=== PATIENT | female | born 1975 | race Caucasian/White ===

== ENCOUNTER → 2016-10-08 | Outpatient (CLI) | payer OTHER ==
[~2016-10-08] MED LIST: CALC625T13 PO; LEVOIUD; MELO15TA4 PO; METH500T37 PO; OXYC-57 PO; PANT1TAB48 PO; POLY335019 PO; SUMA25TA12 PO
== END | disposition home or self-care (01) ==
LOC: C.LAB1850 11:07
PROVIDERS: ATTEND Nurse Practitioner Family
DX: L65.9 Nonscarring hair loss, unspecified (principal)

== ENCOUNTER → 2016-12-03 | Outpatient (CLI) | payer OTHER ==
[2016-12-03 12:56] LABS: ALT/SGPT 22 U/L (12-78); AST/SGOT 15 U/L (15-37); BLOOD UREA NITROGEN 18 mg/dl (7-18); BUN/CREATININE RATIO 16.3 (10-20); CALCIUM 8.7 mg/dl (8.5-10.1); CARBON DIOXIDE 27 mmol/L (21-32); CHLORIDE 110 mmol/L (98-107); GLUCOSE 79 mg/dl (70-99); POTASSIUM 4.3 mmol/L (3.5-5.1); SODIUM 142 mmol/L (136-145)
[2016-12-03 12:59] LABS: ALB/GLOB RATIO 1.2 (0.9-2); ALKALINE PHOSPHATASE 58 U/L (45-117); CHOLESTEROL 180 mg/dl (0-200); CHOLESTEROL/HDL RATIO 3.7; HDL CHOLESTEROL 49 mg/dl; LDL CHOLESTEROL CALCULATED 113 mg/dl; TRIGLYCERIDES 90 mg/dl (0-150); VERY LOW DENSITY LIPOPROT CALC 18 mg/dl
== END | disposition home or self-care (01) ==
LOC: C.LABPVFM 08:07
PROVIDERS: ATTEND Family Medicine
DX: Z13.220 Encounter for screening for lipoid disorders (principal)

== ENCOUNTER → 2017-02-20 | Outpatient (CLI) | payer OTHER ==
[2017-02-21 12:31] LABS: URINE APPEARANCE CLEAR (CLEAR); URINE BILIRUBIN NEG (NEG); URINE COLOR YELLOW; URINE NITRITE NEG (NEG); URINE PH 6.5 (4.5-7.5); URINE SPECIFIC GRAVITY 1.012 (1.000-1.030); UROBILINOGEN NEG (NEG)
[2017-02-21 12:45] LABS: MANUAL MICROSCOPIC REQUIRED? NO; REVIEW REQ? YES
== END | disposition home or self-care (01) ==
LOC: C.LABSPEC 11:16
PROVIDERS: ATTEND Nurse Practitioner Adult Health
DX: R30.0 Dysuria (principal); R14.0 Abdominal distension (gaseous); R10.13 Epigastric pain

== ENCOUNTER → 2017-02-26 | Outpatient (CLI) | payer OTHER ==
--- NOTE | 2017-02-26 08:47 | DIAGNOSTIC IMAGING REPORT ---
BILIARY ULTRASOUND CLINICAL HISTORY: R10.13 Abdominal pain, [id number] COMPARISON STUDY: 08/30/2013 FINDINGS: The liver appears sonographically normal. The gallbladder appears sonographically normal. The pancreas appears sonographically normal. There is no ductal dilatation. The common bile duct measures 4 mm. There is no right-sided hydronephrosis. There is a suspected 5 mm lower pole right renal calculus. IMPRESSION: 1. Suspected 5 mm lower pole right renal calculus 2. Otherwise normal biliary ultrasound. Electronically signed by: Alessio Christianson M.D. 02/26/2017 8:46 AM Dictated Date/Time: 02/26/2017 8:44 AM
== END | disposition home or self-care (01) ==
LOC: C.ULTR 07:25
PROVIDERS: ATTEND Nurse Practitioner Adult Health
DX: R10.13 Epigastric pain (principal); N20.0 Calculus of kidney

== ENCOUNTER → 2017-03-25 | Outpatient (CLI) | payer OTHER ==
[~2017-03-25] MED LIST changes: -CALC625T13 PO; -MELO15TA4 PO; +SINCALIDE INJ 1.6 MCG in SODIUM CHLORIDE 0.9% 100ML 100 ML IV SCH
--- NOTE | 2017-03-25 13:00 | DIAGNOSTIC IMAGING REPORT ---
HEPATOBILIARY EF IMAGING CLINICAL HISTORY: R14.0 Abdominal [id number] Abdominal pain, [id number] COMPARISON STUDY: No previous studies for comparison. FINDINGS: The patient was injected with 5.6 mCi of technetium 99m Choletec. Anterior imaging was performed. The gallbladder was first visualized on the 15 minute image. There was normal passage of activity into small bowel. At 1 hour, the patient was injected with 1.6 mcg of sincalide utilizing a 30 minute intravenous infusion. The gallbladder ejection fraction was normal measuring 97%. IMPRESSION: Normal study. No evidence of cystic duct obstruction. Normal gallbladder ejection fraction of 97%. Electronically signed by: Alessio Christianson M.D. 03/25/2017 12:58 PM Dictated Date/Time: 03/25/2017 12:57 PM
== END | disposition home or self-care (01) ==
LOC: C.NUCL 09:58
PROVIDERS: ATTEND Registered Nurse
DX: R14.0 Abdominal distension (gaseous) (principal); R10.13 Epigastric pain

== ENCOUNTER → 2017-04-01 | Day surgery (SDC) | payer OTHER ==
[2017-03-20 13:25] VITALS: Ht 157.5 cm; Wt 75.0 kg
[~2017-04-01] VITALS: Ht 157.5 cm; Wt 75.0 kg
[~2017-04-01] MED LIST changes: +ATROPINE SULFATE 0.1 MG/ML 5ML SYR IV PRN; +EpHEDrine SULFATE INJ 50 MG/ML AMP IV PRN; +LIDOCAINE HCL 2% 2 ML VIAL (20MG/ML) ONE; +MIDAZOLAM HCL 1 MG/ML 2ML VIAL ONE; +PROPOFOL IV EMULSION 10 MG/ML 20 ML VIAL IV ONE; -SINCALIDE INJ 1.6 MCG in SODIUM CHLORIDE 0.9% 100ML 100 ML IV SCH
--- NOTE | 2017-04-01 14:00 | Endo History and Physical ---
History & Physical Date of Service: Apr 01, 2017. Chief Complaint: ABDOMINAL PAIN AND BLOATING Referring Physician: DR DE JESUS History of Present Illness 41 yo CF who presents for colonoscopy secondary to abdominal pain and bloating. Past Medical History Arthritis, Reflux Past Surgical History Hx Cardiac Surgery: No Hx Internal Defibrillator: No Hx Pacemaker: No Hx Abdominal Surgery: Yes (C SECTIONX2) Hx of Implantable Prosthesis: No Hx Post-Op Nausea and Vomiting: No Hx Cancer Surgery: No Hx Thoracic Surgery: No Hx Orthopedic: Yes (RT CTR) Hx Urinary Tract Surgery: Yes (TUMOR REMOVED FROM BLADDER) Family History None Social History Smoking Status: Current Every Day Smoker Hx Substance Use: No Hx Alcohol Use: No Allergies Coded Allergies: No Known Allergies (Verified , 04/01/17) Current Medications Reported Home Medications Medications Dose Route/Sig Max Daily Dose Days Date Category Miralax (Polyethylene Glycol 3350) 1 Pow 17 Gm PO QAM 11/04/15 Reported Protonix (Pantoprazole) 40 Mg Tab 40 Mg PO BID 01/28/15 Reported Robaxin (Methocarbamol) 500 Mg Tab 500 Mg PO QID PRN 01/28/15 Reported Mirena (Levonorgestrel (Iud)) 20 Mcg/24 Hr Iud 1 UD 08/31/13 Reported Imitrex (Sumatriptan Succinate) 25 Mg Tab 25 Mg PO UD PRN 08/31/13 Reported Vital Signs Weight (Kilograms): 75 Height (Feet): 5 Height (Inches): 2 Date Time Temp Pulse Resp B/P (MAP) Pulse Ox O2 Delivery O2 Flow Rate FiO2 04/01/17 13:42 36.7 66 16 111/70 (84) 66 Room Air Physical Exam General Appearance: WD/WN, no apparent distress Respiratory/Chest: Auscultation: breath sounds normal Cardiovascular: Heart Auscultation: RRR Abdomen: Bowel Sounds: normal Inspection & Palpation: soft, non-distended, no tenderness, guarding & rebound Assessment and Plan Assessment: 41 yo CF who presents for colonoscopy secondary to abdominal pain and bloating. Plan: Proceed with colonoscopy
--- NOTE | 2017-04-01 14:38 | Discharge Instructions ---
Endoscopy Patient Instructions Date / Procedure(s) Performed Apr 01, 2017. Colonoscopy Allergy Information Coded Allergies: No Known Allergies (Verified , 04/01/17) Discharge Date / Findings Apr 01, 2017. Colon polyp Diverticulosis Internal hemorrhoids Medication Instructions OK to resume all medications today as prescribed Reported Home Medications Medications Dose Route/Sig Max Daily Dose Days Date Category Miralax (Polyethylene Glycol 3350) 1 Pow 17 Gm PO QAM 11/04/15 Reported Protonix (Pantoprazole) 40 Mg Tab 40 Mg PO BID 01/28/15 Reported Robaxin (Methocarbamol) 500 Mg Tab 500 Mg PO QID PRN 01/28/15 Reported Mirena (Levonorgestrel (Iud)) 20 Mcg/24 Hr Iud 1 UD 08/31/13 Reported Imitrex (Sumatriptan Succinate) 25 Mg Tab 25 Mg PO UD PRN 08/31/13 Reported Provider Instructions Activity Restrictions - No exercising or heavy lifting for 24 hours. - Do not drink alcohol the day of the procedure. - Do not drive a car or operate machinery until the day after the procedure. - Do not make any important decisions or sign important papers in 24 hours after the procedure. Following Day: - Return to full activity which may include returning to work/school. Diet Start your diet with liquids and light foods (jello, soup, juice, toast). Then eat your usual diet if not nauseated. Treatment For Common After Affects For mild abdominal pain, bloating, or excessive gas: - Rest - Eat lightly - Lie on right side Follow-Up Information Follow-up with DR DE JESUS as scheduled Anesthesia Information What You Should Know You have had a procedure that required some medicine to reduce anxiety and discomfort. This treatment is called moderate sedation. After receiving the treatment, you may be sleepy, but you will be able to breathe on your own. The effects of the treatment may last for several hours. Follow these instructions along with Activity/Diet recommendations noted above: * Do NOT do anything where dizziness or clumsiness would be dangerous. * Rest quietly at home today, then you can be up and about tomorrow. * Have a responsible person stay with you the rest of today. * You may have had an I.V. today. If so, you may take the dressing off later today. Recommendations Call your doctor if: * Trouble breathing * Continuous vomiting for more than 24 hours * Temperature above 101 degrees * Severe abdominal pain or bloating * Pain not relieved by pain medicine ordered * There is increased drainage or redness from any incision * A large amount of rectal bleeding greater than 2-3 tablespoons. (If you had a polyp/s removed or have hemorrhoids, a small amount of blood - from the rectum is to be expected.) * You have any unanswered questions or concerns. IN THE EVENT OF A SERIOUS EMERGENCY, GO TO THE NEAREST EMERGENCY ROOM Your discharge instructions were prepared by provider Mahamed Stroud. Patient Instructions Signature Page Valeria Nicole Patient (or Guardian) Signature/Date: I have read and understand the instructions given to me by my caregivers. Caregiver/RN/Doctor Signature/Date: The above-named patient and/or guardian has received patient instructions on this date. + Original Patient Signature Page (only) stays with chart. Please make copy for patient.
--- NOTE | 2017-04-01 14:51 | GI REPORT ---
Procedure Date: 04/01/2017 2:14 PM Procedure: Colonoscopy Indications: Generalized abdominal pain Medicines: Monitored Anesthesia Care Complications: No immediate complications. Estimated Blood Loss: Estimated blood loss: none. Procedure: Pre-Anesthesia Assessment: - Prior to the procedure, a History and Physical was performed, and patient medications and allergies were reviewed. The patient's tolerance of previous anesthesia was also reviewed. The risks and benefits of the procedure and the sedation options and risks were discussed with the patient. All questions were answered, and informed consent was obtained. Prior Anticoagulants: The patient has taken no previous anticoagulant or antiplatelet agents. ASA Grade Assessment: II - A patient with mild systemic disease. After reviewing the risks and benefits, the patient was deemed in satisfactory condition to undergo the procedure. After I obtained informed consent, the scope was passed under direct vision. Throughout the procedure, the patient's blood pressure, pulse, and oxygen saturations were monitored continuously. The On-site loaner was introduced through the anus and advanced to the terminal ileum. The colonoscopy was performed without difficulty. The patient tolerated the procedure well. The quality of the bowel preparation was good. The terminal ileum, ileocecal valve, appendiceal orifice, and rectum were photographed. Findings: A 3 mm polyp was found in the sigmoid colon. The polyp was sessile. The polyp was removed with a cold snare. Resection was complete, but the polyp tissue was not retrieved. Multiple small-mouthed diverticula were found in the sigmoid colon. Non-bleeding internal hemorrhoids were found during retroflexion. The hemorrhoids were small. Impression: - One 3 mm polyp in the sigmoid colon, removed with a cold snare. Complete resection. Polyp tissue not retrieved. - Diverticulosis in the sigmoid colon. - Non-bleeding internal hemorrhoids. Recommendation: - Resume previous diet. - Continue present medications. - Repeat colonoscopy in 5 years for surveillance. - Return to primary care physician as previously scheduled. Mahamed Stroud, DO 04/01/2017 2:51:10 PM This report has been signed electronically. Note Initiated On: 04/01/2017 2:14 PM I attest to the content of the Intraoperative Record and orders documented therein, exceptions below
--- NOTE | 2017-04-01 15:02 | Anesthesiology Progress Note ---
Anesthesia Post Op Note Date & Time Apr 01, 2017 at 15:01 Vital Signs Pain Intensity: 0 Vital Signs Past 12 Hours Date Time Temp Pulse Resp B/P (MAP) Pulse Ox O2 Delivery O2 Flow Rate FiO2 04/01/17 14:43 73 16 98/51 (67) 100 Room Air 04/01/17 13:42 36.7 66 16 111/70 (84) 66 Room Air Notes Mental Status: alert / awake / arousable, participated in evaluation Pt Amnestic to Procedure: Yes Nausea / Vomiting: adequately controlled Pain: adequately controlled Airway Patency, RR, SpO2: stable & adequate BP & HR: stable & adequate Hydration State: stable & adequate Anesthetic Complications: no major complications apparent
[2017-04-01 15:13] VITALS: BP 109/61; PULSE 69; O2SAT 100
== END | disposition home or self-care (01) ==
LOC: C.GI 12:26
PROVIDERS: ATTEND Internal Medicine
DX: R10.9 Unspecified abdominal pain (principal); R14.0 Abdominal distension (gaseous); D12.5 Benign neoplasm of sigmoid colon; K57.32 Diverticulitis of large intestine without perforation or abscess without bleeding; K64.8 Other hemorrhoids; M19.90 Unspecified osteoarthritis, unspecified site; K21.9 Gastro-esophageal reflux disease without esophagitis; F17.200 Nicotine dependence, unspecified, uncomplicated; Z87.11 Personal history of peptic ulcer disease

== ENCOUNTER → 2017-04-04 | Outpatient (CLI) | payer OTHER ==
[~2017-04-04] MED LIST changes: -ATROPINE SULFATE 0.1 MG/ML 5ML SYR IV PRN; -EpHEDrine SULFATE INJ 50 MG/ML AMP IV PRN; -LIDOCAINE HCL 2% 2 ML VIAL (20MG/ML) ONE; -MIDAZOLAM HCL 1 MG/ML 2ML VIAL ONE; -PROPOFOL IV EMULSION 10 MG/ML 20 ML VIAL IV ONE
--- NOTE | 2017-04-04 16:44 | DIAGNOSTIC IMAGING REPORT ---
KUB HISTORY: 41 years-old Female Right sided abdominal pain COMPARISON: CT 01/24/2015 TECHNIQUE: Supine view of the abdomen FINDINGS: Intrauterine device is again noted and appears unchanged. Likely phleboliths are seen within the pelvis. Focal radiopacities projecting over the inferior pole right kidney measuring up to 4 mm suggest nephrolithiasis. No renal calculi are seen along the course of either ureter. The bowel gas pattern is nonobstructive. There is moderate volume of formed stool within the right hemicolon. There is no fracture. Lung bases are clear. IMPRESSION: 1. Probable right-sided nephrolithiasis without ureteral calculi identified. 2. Nonobstructive bowel gas pattern. 3. IUD noted. The above report was generated using voice recognition software. It may contain grammatical, syntax or spelling errors. Electronically signed by: Bishop Frey M.D. 04/04/2017 4:42 PM Dictated Date/Time: 04/04/2017 4:40 PM
== END | disposition home or self-care (01) ==
LOC: C.RADPV 16:13
PROVIDERS: ATTEND Nurse Practitioner Family
DX: R10.9 Unspecified abdominal pain (principal); Z97.5 Presence of (intrauterine) contraceptive device

== ENCOUNTER → 2017-04-26 | Outpatient (CLI) | payer OTHER ==
--- NOTE | 2017-04-26 11:32 | DIAGNOSTIC IMAGING REPORT ---
CHEST 2 VIEWS ROUTINE CLINICAL HISTORY: N20.0 nephrolithiasis, preoperative chest. COMPARISON STUDY: 09/26/2008 FINDINGS: The cardiac and mediastinal contours are normal. There is no evidence of focal pulmonary consolidation. There is no evidence of failure. No pleural effusions are visualized.[ IMPRESSION: No active disease in the chest. Electronically signed by: Alessio Christianson M.D. 04/26/2017 11:31 AM Dictated Date/Time: 04/26/2017 11:31 AM
[2017-04-26 12:42] LABS: BASO % 0.3 %; BASO ABS # 0.02 K/uL (0-0.2); COMPLETE YES; EOS % 2.1 %; HEMATOCRIT 41.7 % (37-47); IG% 0.3 %; LYMPH % 33.7 %; LYMPH ABS # 2.36 K/uL (1.2-3.4); MEAN CELL VOLUME 91.6 fL (80-100); MEAN CORPUSCULAR HEMOGLOBIN 30.5 pg (25-34); MEAN CORPUSCULAR HGB CONC 33.3 g/dl (32-36); MEAN PLATELET VOLUME 11.3 fL (7.4-10.4); MONO % 6.9 %; NEUT % 56.7 %; PLATELET COUNT 240 K/uL (130-400); RED BLOOD COUNT 4.55 M/uL (4.2-5.4)
[2017-04-26 12:48] LABS: URINE APPEARANCE CLEAR (CLEAR); URINE BILIRUBIN NEG (NEG); URINE COLOR YELLOW; URINE NITRITE NEG (NEG); URINE PH 5.5 (4.5-7.5); URINE SPECIFIC GRAVITY 1.023 (1.000-1.030); UROBILINOGEN NEG (NEG)
[2017-04-26 13:04] LABS: BLOOD UREA NITROGEN 18 mg/dl (7-18); BUN/CREATININE RATIO 18.3 (10-20); CARBON DIOXIDE 25 mmol/L (21-32); CHLORIDE 110 mmol/L (98-107); CREATININE 0.98 mg/dl (0.60-1.20); POTASSIUM 3.9 mmol/L (3.5-5.1); SODIUM 141 mmol/L (136-145)
[2017-04-26 13:06] LABS: MANUAL MICROSCOPIC REQUIRED? NO; REVIEW REQ? NO
== END ==
LOC: C.CPL 10:56
PROVIDERS: ATTEND Urology
DX: N20.0 Calculus of kidney (principal)

== ENCOUNTER → 2017-05-09 | Outpatient (CLI) | payer OTHER ==
--- NOTE | 2017-05-09 19:40 | DIAGNOSTIC IMAGING REPORT ---
KUB HISTORY: N20.0 Nephrolithiasis COMPARISON: KUB 04/04/2017, CT 01/24/2015 FINDINGS: The bowel gas pattern is non-obstructive. There is no organomegaly. 3 mm right renal calculus is noted. Bilateral renal shadows are partially obscured by colonic stool. No definite left-sided renal calculi or ureteral calculi are identified. Phleboliths are seen within the pelvis. IUD noted. No pneumoperitoneum or pneumatosis. No fracture. IMPRESSION: 1. Right-sided nephrolithiasis. 2. No ureteral lithiasis identified. Electronically signed by: Bishop Frey M.D. 05/09/2017 7:38 PM Dictated Date/Time: 05/09/2017 7:36 PM
== END | disposition home or self-care (01) ==
LOC: C.RAD 19:17
PROVIDERS: ATTEND Urology
DX: N20.0 Calculus of kidney (principal)

== ENCOUNTER → 2017-05-10 | Day surgery (SDC) | payer OTHER ==
[2017-04-16 10:32] VITALS: Ht 157.5 cm; Wt 77.3 kg
[~2017-05-10] VITALS: Ht 157.5 cm; Wt 77.3 kg
[~2017-05-10] MED LIST changes: +ATROPINE SULFATE 0.1 MG/ML 5ML SYR IV PRN; +CIPROFLOXACIN / D5W 400 MG IV SCH; +CLINDAMYCIN PHOS 150 MG/ML 2 ML VIAL IV SCH; +DEXAMETHASONE SOD INJ 4 MG/ML VIAL ONE; +EpHEDrine SULFATE INJ 50 MG/ML AMP IV PRN; +FENTANYL CITRATE INJ 50 MCG/1 ML 2 ML VIAL IV PRN; +FENTANYL CITRATE INJ 50 MCG/1 ML 2 ML VIAL ONE; +LACTATED RINGER'S 1000ML 1,000 ML IV SCH; +LIDOCAINE HCL 2% 2 ML VIAL (20MG/ML) ONE; +MIDAZOLAM HCL 1 MG/ML 2ML VIAL ONE; +ONDANSETRON INJ 2 MG/ML 2 ML VIAL ONE; +OXYCODONE/ACETAMINOPHEN 5-325 TAB PO PRN; +PROPOFOL IV EMULSION 10 MG/ML 20 ML VIAL IV ONE
--- NOTE | 2017-05-10 12:25 | History & Physical Bridge Note ---
H&P Re-Evaluation Bridge Note: I have examined the patient, reviewed the History & Physical and in the interval since the performance of the History & Physical I have noted the following changes of clinical significance: No changes noted
--- NOTE | 2017-05-10 13:17 | [facility] Operative Report ---
Operative Report Operative Date May 10, 2017. Pre-Operative Diagnosis RIGHT RENAL STONES Post-Operative Diagnosis SAME Procedure(s) Performed RIGHT ESWL Surgeon JENNIFER Stock Sheets Cleaner Inspector Surgeon(s) NONE Estimated Blood Loss NONE Findings RIGHT RENAL STONES Specimens NONE Drains NONE Anesthesia GENERAL Complication(s) None Disposition Recovery Room / PACU Indications RIGHT RENAL STONES Description of Procedure Patient was identified in the preoperative holding area, appropriate informed consent was reviewed and completed and the patient was transported to the operating suite. Upon arrival appropriate preoperative antibiotics were administered and general anesthesia induced. The patient was placed in supine position and the stone was localized under fluoroscopy. A total of [_2500__] shocks were delivered to the stone. There appeared to be good fragmentation of the stone. Details of this procedure can be found on the [facility] information sheet. At the conclusion of the case the patient was extubated and taken to the PACU in stable condition. There were no complications. I attest to the content of the Intraoperative Record and any orders documented therein. Any exceptions are noted below.
--- NOTE | 2017-05-10 13:19 | Discharge Instructions-SurgCtr ---
Discharge Instructions Date of Service May 10, 2017. Visit Reason for Visit: Stones Discharge Discharge Diagnosis / Problem: STONES Discharge Goals Goal(s): Therapeutic intervention Activity Recommendations Activity Limitations: resume your previous activity (TAKE IT EASY TODAY) Anesthesia . Post Anesthesia Instructions: If you have had General Anesthesia or IV Sedation: * Do not drive today. * Resume driving when surgeon permits. * Do not make important decisions or sign legal documents today. * Call surgeon for: 1. Temperature elevations greater than 101 degrees F. 2. Uncontrollable pain. 3. Excessive bleeding. 4. Persistent nausea and vomiting. 5. Medication intolerance (nausea, vomiting or rash). * For nausea and vomiting use only clear liquids such as: tea, soda, bouillon until nausea subsides, then gradually increase diet as tolerated. * If you have any concerns or questions, call your surgeon's office. If physician is unavailable and it is an emergency, call 911 or go to the nearest emergency room. . Instructions / Follow-Up Instructions / Follow-Up MEDICATIONS: Resume previous medications unless instructed otherwise by your surgeon. Resume pre-ESWL medication except for aspirin, coumadin or other blood thinners. __ Toradol 10 mg every 6 hours for initial pain. __ Lortab 5 mg 1-2 every 4 hours for pain. _X_ Percocet 5 mg 1-2 every 4 hours for pain. __ Macrodantin 50 mg x 3 a day. __ Flomax 1 tab daily one half (1/2) hour after supper. SPECIAL CARE INSTRUCTIONS: 1. Get KUB (x-ray) _X_ day before or day of office visit and bring x-ray to office __ get x-ray 2 days before and tell office you are getting x-rays when you call for the appointment. 2. Strain ALL urine. 3. Please call if you have a fever, chills, severe pain, or constant dribbling of urine. 4. Office phone number . FOLLOW UP VISIT: Please call the office to schedule a follow-up appointment at . Diet Recommendations Home Diet: resume previous diet Procedures Procedures Performed: RIGHT ESWL Pending Studies Studies pending at discharge: no Medical Emergencies . Who to Call and When: Medical Emergencies: If at any time you feel your situation is an emergency, please call 911 immediately. . Non-Emergent Contact Non-Emergency issues call your: Urologist Call Non-Emergent contact if: temperature is above 101.5, your pain is not controlled . . "Provider Documentation" section prepared by Terrance Arroyo. . [place] Drug Monitoring Program Search Results: patient reviewed within database
--- NOTE | 2017-05-10 14:22 | Anesthesia Progress Nt - [facility] ---
Anesthesia Post Op Note Date & Time May 10, 2017 at 14:22 Vital Signs Pain Intensity: 0 Vital Signs Past 12 Hours Date Time Temp Pulse Resp B/P (MAP) Pulse Ox O2 Delivery O2 Flow Rate FiO2 05/10/17 14:16 36.4 66 18 104/75 100 Room Air 05/10/17 13:53 54 14 05/10/17 13:53 56 14 100 05/10/17 13:52 73 16 05/10/17 13:52 74 16 100 05/10/17 13:51 65 13 05/10/17 13:51 62 13 119/83 100 05/10/17 13:47 109/71 05/10/17 13:46 36.2 68 12 109/71 100 Mask 5 05/10/17 11:31 37.1 61 20 112/81 (91) 100 Room Air Notes Mental Status: alert / awake / arousable, participated in evaluation Pt Amnestic to Procedure: Yes Nausea / Vomiting: adequately controlled Pain: adequately controlled Airway Patency, RR, SpO2: stable & adequate BP & HR: stable & adequate Hydration State: stable & adequate Anesthetic Complications: no major complications apparent
[2017-05-10 14:32] VITALS: TEMP 37.4
[2017-05-10 14:47] VITALS: BP 124/70; O2SAT 99
== END | disposition home or self-care (01) ==
LOC: X.SURG 10:59
PROVIDERS: ATTEND Urology
DX: N20.0 Calculus of kidney (principal); G43.009 Migraine without aura, not intractable, without status migrainosus; M46.96 Unspecified inflammatory spondylopathy, lumbar region; F41.8 Other specified anxiety disorders; K21.9 Gastro-esophageal reflux disease without esophagitis; G47.00 Insomnia, unspecified; F17.200 Nicotine dependence, unspecified, uncomplicated; Z79.899 Other long term (current) drug therapy

== ENCOUNTER → 2017-05-19 | Outpatient (CLI) | payer OTHER ==
[~2017-05-19] MED LIST changes: -ATROPINE SULFATE 0.1 MG/ML 5ML SYR IV PRN; -CIPROFLOXACIN / D5W 400 MG IV SCH; -CLINDAMYCIN PHOS 150 MG/ML 2 ML VIAL IV SCH; -DEXAMETHASONE SOD INJ 4 MG/ML VIAL ONE; -EpHEDrine SULFATE INJ 50 MG/ML AMP IV PRN; -FENTANYL CITRATE INJ 50 MCG/1 ML 2 ML VIAL IV PRN; -FENTANYL CITRATE INJ 50 MCG/1 ML 2 ML VIAL ONE; -LACTATED RINGER'S 1000ML 1,000 ML IV SCH; -LIDOCAINE HCL 2% 2 ML VIAL (20MG/ML) ONE; -MIDAZOLAM HCL 1 MG/ML 2ML VIAL ONE; -ONDANSETRON INJ 2 MG/ML 2 ML VIAL ONE; -OXYCODONE/ACETAMINOPHEN 5-325 TAB PO PRN; -PROPOFOL IV EMULSION 10 MG/ML 20 ML VIAL IV ONE
--- NOTE | 2017-05-19 14:21 | DIAGNOSTIC IMAGING REPORT ---
KUB CLINICAL HISTORY: NEPHROLITHIASIS nephrocalcinosis COMPARISON STUDY: 05/09/2017 FINDINGS: Right kidney is poorly seen due to overlying fecal material. Left kidney appears be generally unremarkable within some fecal material limitations. There is an intrauterine device. Bowel pattern is nonobstructive. IMPRESSION: Essentially nondiagnostic study of the kidneys due to extensive overlying fecal material. The above report was generated using voice recognition software. It may contain grammatical, syntax or spelling errors. Electronically signed by: Yohan Strange M.D. 05/19/2017 2:20 PM Dictated Date/Time: 05/19/2017 2:19 PM
== END | disposition home or self-care (01) ==
LOC: C.RAD 14:02
PROVIDERS: ATTEND Urology
DX: N20.0 Calculus of kidney (principal)

== ENCOUNTER → 2017-05-20 | Outpatient (CLI) | payer OTHER | END | disposition home or self-care (01) | LOC: C.LABSPEC 16:57 | PROVIDERS: ATTEND Urology | DX: N20.0 Calculus of kidney (principal) ==

== ENCOUNTER → 2017-08-06 | Outpatient (CLI) | payer OTHER | END | disposition home or self-care (01) | LOC: C.PAPS 14:04 | PROVIDERS: ATTEND Obstetrics & Gynecology | DX: Z12.4 Encounter for screening for malignant neoplasm of cervix (principal) ==

== ENCOUNTER → 2017-08-19 | Outpatient (CLI) | payer OTHER ==
[~2017-08-19] MED LIST changes: +PANT1TAB3 PO; -PANT1TAB48 PO
[2017-08-22 14:26] LABS: CHLAMYDIA TRACH RNA*** NOT DETECTED (NOT DETECTED); GC (NEIS GONORRHOEAE)RNA** NOT DETECTED (NOT DETECTED); TRICHOMONAS VAGINALIS RNA** NOT DETECTED (NOT DETECTED)
== END | disposition home or self-care (01) ==
LOC: C.LABSPEC 17:40
PROVIDERS: ATTEND Physician Assistant
DX: Z30.432 Encounter for removal of intrauterine contraceptive device (principal)

== ENCOUNTER → 2017-08-19 | Outpatient (CLI) | payer OTHER ==
[2017-08-19 11:15] LABS: PREG INTERNAL NEGATIVE QC NEG CLEAR BACKGROUND; PREG INTERNAL POSITIVE QC POS CONTROL LINE
== END | disposition home or self-care (01) ==
LOC: C.LAB 10:01
PROVIDERS: ATTEND Physician Assistant
DX: Z30.430 Encounter for insertion of intrauterine contraceptive device (principal)

== ENCOUNTER → 2017-09-12 | Outpatient (CLI) | payer OTHER ==
[~2017-09-12] MED LIST changes: +CYM/30 PO; +DICL50TA3 PO; +GABA-113 PO; +LEVO1IUD2; -LEVOIUD; +METH-445 PO; -METH500T37 PO
[2017-09-12 17:37] LABS: BASO % 0.5 %; BASO ABS # 0.04 K/uL (0-0.2); EOS % 2.2 %; EOS ABS # 0.19 K/uL (0-0.5); HEMATOCRIT 40.7 % (37-47); HEMOGLOBIN 13.6 g/dL (12.0-16.0); IG# 0.02 K/uL (0.00-0.02); LYMPH % 39.4 %; LYMPH ABS # 3.35 K/uL (1.2-3.4); MEAN CELL VOLUME 91.9 fL (80-100); MEAN CORPUSCULAR HEMOGLOBIN 30.7 pg (25-34); MEAN CORPUSCULAR HGB CONC 33.4 g/dl (32-36); MEAN PLATELET VOLUME 10.8 fL (7.4-10.4); MONO ABS # 0.34 K/uL (0.11-0.59); NEUT % 53.7 %; NEUT ABS # 4.56 K/uL (1.4-6.5); PLATELET COUNT 257 K/uL (130-400); RED CELL DISTRIBUTION WIDTH CV 13.8 % (11.5-14.5); RED CELL DISTRIBUTION WIDTH SD 46.5 fL (36.4-46.3)
[2017-09-12 19:26] LABS: ALT/SGPT 27 U/L (12-78); AST/SGOT 21 U/L (15-37); BLOOD UREA NITROGEN 18 mg/dl (7-18); CALCIUM 8.6 mg/dl (8.5-10.1); CARBON DIOXIDE 26 mmol/L (21-32); CREATININE 1.08 mg/dl (0.60-1.20); GLUCOSE 89 mg/dl (70-99); POTASSIUM 3.6 mmol/L (3.5-5.1); SODIUM 136 mmol/L (136-145)
[2017-09-12 19:37] LABS: ALKALINE PHOSPHATASE 60 U/L (45-117); TOTAL PROTEIN 7.6 gm/dl (6.4-8.2)
== END | disposition home or self-care (01) ==
LOC: C.LABPVFM 16:11
PROVIDERS: ATTEND Nurse Practitioner Adult Health
DX: R53.83 Other fatigue (principal)

== ENCOUNTER → 2017-11-12 | Outpatient (CLI) | payer OTHER ==
[~2017-11-12] MED LIST changes: -METH-445 PO; +METH500T37 PO; -OXYC-57 PO
--- NOTE | 2017-11-12 15:16 | MAMMOGRAPHY REPORT ---
BILATERAL DIGITAL DIAGNOSTIC MAMMOGRAM TOMOSYNTHESIS WITH CAD AND TARGETED LEFT ULTRASOUND: 11/12/2017 CLINICAL HISTORY: 41-year-old woman with left breast redness and pain thought to have a periareolar a bscess. She has been treated with antibiotics for 8 days and the area of redness is increasing and s ymptoms are worsening. She presents for diagnostic evaluation, also baseline mammogram. TECHNIQUE: Bilateral breast tomosynthesis in addition to standard 2D mammography was performed. Curre nt study was also evaluated with a Computer Aided Detection (CAD) system. COMPARISON: No prior exams were available for comparison. BREAST COMPOSITION: There are scattered areas of fibroglandular density in both breasts. FINDINGS: A triangular palpable marker overlies the 12:00 periareolar left breast. There is asymmetr ic focal skin thickening of the anterior left breast. A elliptical shaped 2 cm oval mass with lucent center and thick dense wall is identified in the area of concern in the 12:00 anterior subareolar le ft breast, which could represent a fluid collection and further evaluation with ultrasound was perfor med. There is a 10 mm round circumscribed mass with lucent center in the lower outer anterior left b reast for which further evaluation with ultrasound was performed. No other suspicious mass, architec tural distortion or cluster of microcalcifications is seen bilaterally. Targeted ultrasound was performed in the area of redness and pain pointed out by the patient but also visible on inspection. In particular, visual inspection of the left breast demonstrates a 6 x 7 cm area of faint erythema centered in the upper inner quadrant but there is a more focal darkly erythema tous round area measuring 3 cm centered in the 11:00 periareolar region. There is also skin desquama tion. On ultrasound in the focal area of erythema, there focal skin thickening measuring up to 4 mm, and an underlying heterogeneous hypoechoic fluid collection in the subdermal 12:00 periareolar left breast measuring approximately 2.2 x 1.1 x 2.7 cm, which correlates with the elliptical mammographic mass. This is compatible with an abscess and was subsequently aspirated during the same appointment so that it could be analyzed for culture, Gram stain and sensitivity. Additional ultrasound performed in the lower outer left breast demonstrates a morphologically normal lymph node correlating with the 10 mm mammographic mass. No suspicious solid mass identified on targ eted ultrasound. IMPRESSION: ACR BI-RADS CATEGORY 2: BENIGN, TARGETED ULTRASOUND ACR BI-RADS CATEGORY 1: NEGATIVE 1. There are imaging findings of cellulitis, mastitis and subareolar abscess in the 11:00 to 12:00 p eriareolar left breast. Abscess drainage was subsequently performed during the same appointment and please refer to a separate report for full detail. 2. A circumscribed 10 mm lucent centered mass in the lower outer left breast corresponds to a benign intramammary lymph node. 3. Overall, no mammographic evidence of malignancy. Consider follow-up at resolution in the left br east otherwise recommend routine screening mammography in 1 year. These results and recommendations were discussed with the patient at the time of the exam. Approximately 10% of breast cancers are not detected with mammography. A negative mammographic report should not delay biopsy if a clinically suggestive mass is present. Kandace Dempsey M.D. ay/:11/12/2017 14:46:25 Application Development Consultant: Juliana Rios, [facility] letter sent: Normal 1/2 BI-RADS Code: ACR BI-RADS Category 2: Benign Ultrasound BI-RADS: ACR BI-RADS Category 1: Negative
--- NOTE | 2017-11-14 08:00 | MAMMOGRAPHY REPORT ---
ASPIRATION LEFT BREAST: 11/12/2017 CLINICAL HISTORY: 41-year-old with a left subareolar abscess presents for abscess drainage. A 2.2 x 2.7 cm fluid collection is identified in the 12:00 periareolar/subareolar left breast, which has not resolved despite 8 days of antibiotic therapy. PATIENT CONSENT: After explaining the risks, benefits and alternatives of the procedure to the patien t, informed consent was obtained verbally and in writing. Specific risks include: bleeding, infection and puncture of adjacent structure. A time out was preformed and the left breast was agreed as the s ite for ultrasound-guided aspiration. PROCEDURE DESCRIPTION: The hypoechoic fluid collection in the 12:00 periareolar left breast was ident ified and targeted for aspiration. 1% buffered lidocaine without epinephrine was administered as loc al anesthesia. An 18-gauge needle was advanced into the fluid collection and aspiration was performe d. Approximately 5 cc of blood-tinged pus was aspirated and sent to the pathology department for cul ture, Gram stain and sensitivity. The patient tolerated the procedure well and there was no immediat e complication. She left the department in satisfactory condition. IMPRESSION: ASPIRATION 1. Status post aspiration of a 2.2 x 2.7 cm fluid collection in the subdermal, subareolar 12:00 left breast. The fluid was sent to the pathology department for culture, Gram stain and sensitivity. 2. Given the possibility of recurrent subareolar abscesses, surgical consultation is also recommended . 3. These findings were discussed with the patient's provider, Jessica Shook, at the time of the ex am. Kandace Dempsey M.D. ay/:11/12/2017 15:05:27 Community Service Coordinator: Dr. Kandace Dempesy, [facility]
== END | disposition home or self-care (01) ==
LOC: C.MAMM 13:42
PROVIDERS: ATTEND Physician Assistant
DX: N61.1 Abscess of the breast and nipple (principal); N63.20 Unspecified lump in the left breast, unspecified quadrant

== ENCOUNTER → 2017-11-22 | Outpatient (CLI) | payer OTHER ==
--- NOTE | 2017-11-23 05:56 | PAP/PSG TECHNICIAN REPORT ---
[facility] [employer] Clerk Polysomnogram Report Study name: None Report date: 11/23/2017 Study date: 11/22/2017 Referring Physician: DR.PHILIPP NAVEEN D.O. Name: HAKEEM NICOLE Darrell Interpreting Physician: Wali Urena M.D. Date of : 1975 Auto Rental Clerk: Lisa Bazzi [facility]. Sex: Female Age: 41 StudyType: PSG Weight: 168.7 lbs Height: 41 years, Height 5' 2" Neck Circum: 13.75in. BMI: 30.85 Medications: Zyrtec 10mg, Diclofenac 50mg, Zolmitriptan 5mg, Miralax, Duloxetine HCl 60mg, Betamethasone Dipropionate 0.05%cream, Pantoprazole Sodium 40mg, Vit D, Cyanocobalamin 2500mcg, Gabapentin 300mg, Lidocaine cream,Mirena Patient History Study started on room air with no ETCO2 monitoring in room #6. 41 yr old female here tonight for a diagnostic psg. She complains of fatigue and loud snoring. There has been no witnessed apnea. She does suffer from migraines about one per month. Her ESS=6/24. Neck circ=13.75inches. Parameters Monitored NPSG: E1-M2, E2-M1, Fp1-M2, Fp2-M1, F3-M2, F4-M2, F4-M1, C3-M2, C4-M2, C4-M1, O1-M2, O2-M2, O2-M1, T3-M2, T4-M1, P3-M2, P4-M1, CHIN1, CHIN2, HR, EKG, Legs, PFLOW, SNOR, FLOW, CFLOW, Tidal Volume, THOR, ABDO, SpO2, PLTH, CPRESS, ETCO2 Wave, ETCO2, pH Sleep Architecture Sleep Stages Time at Lights Off 9:49:27 PM STAGES Time (min.) TST (%) Time at Lights On 5:47:27 AM Wake 35.5 -- Total Recording Time (TRT) 478.00 min. N1 24.5 6 Total Sleep Period (TSP) 464.5 min. N2 268.0 61 Total Sleep Time (TST) 442.5min. N3 85.5 19 Awake Time 35.5 min. REM 64.5 15 Wake after Sleep Onset 22.0 min. Sleep Efficiency (SE) 93 % Sleep Onset Latency (JERRY) 13.5 min. Number of Stage 1 Shifts None Awakenings 13 Stage Changes 94 Number of REM periods 9 REM 64.5 15 REM Latency 143.5 min. NREM 378.0 85 Body Position Analysis Supine Right Left Side Prone Vertical Total Sleep Time (min.) 46.4 57.5 353.5 411.00 0.0 0.0 Total Sleep Time (%) 7% 13% 80% 93 0% N/A% Total Sleep Time REM (min.) 0.0 32.0 32.5 None 0.0 0.0 Total Sleep Time NREM (min.) 31.5 25.5 321.0 None 0.0 0.0 Intermittent Wake (min.) 14.9 2.7 17.9 None 0.0 0.0 Total Sleep Period (%) 9% None None None None None Arousals Myoclonus (PLM) * Events Count Index Events Count Index Spontaneous 15 2 Events Awake (PLMW) 20 33.8 Respiratory 3 0.3 Events Asleep w/ Arousal (PLMA) 21 2.8 PLM 20 3 Events Asleep w/o Arousal (PLMS) 47 6.4 Snoring 8 1 Total Asleep 68 9.2 Total 46 6 Total 88 11 Respiratory Analysis * CA OA MA CH H RERA Total Count 0 2 0 0 8 0 10 Index 0.0 0.3 0.0 0 1.1 0 1.4 Mean Duration 0.0 12.3 0.0 0.00 23.1 0.0 20.9 Longest Duration 0.0 13.1 0.0 0.00 0.0 0.0 44.6 Respiratory Event Summary Total Supine ~Supine Right Left Prone REM NREM Apneas Count 2 0 2 0 2 N/A 0 2 Index 0.3 0 0 0.0 0.3 N/A 0 0 Hypopneas (4% Desat) Count 8 1 7 3 4 N/A 3 5 Index 1.1 1.9 1 3.1 0.7 N/A 2.8 0.8 Apneas & All Hypopneas Count 10 1 9 3 6 N/A 3 7 Index 1.4 2 1 3 1 N/A 2.8 1.1 Respiratory Events (Lpta+All Hyp+RERA) Count 10 1 9 3 6 N/A 3 7 Index 1.4 2 1 3.1 1.0 N/A 2.8 1.1 Respiratory Related Arousal Count 3 1 2 0 2 N/A 0 2 Index 0.3 0 0 0 0 N/A 0 0 Snoring Analysis Supine Right Left Prone REM NREM Total Snore duration 20.5 min Snores count 193 4 800 N/A 3 994 997 Snore mean duration 1.2 Sec Snores index 368 4 136 N/A 2.8 157.8 135.2 TST with snoring (%) 4.6% Desaturation Event Summary: Minimum %SpO2 Event Count Mean/Min/Max Duration(sec.) Desaturation Index % Time In Bed > 90 9 29.5 / 8.8 / 59.0 3.1 36.6 86 - 90 8 18.0 / 6.8 / 31.3 1.6 63.0 81 - 85 0 N/A 0.0 0.4 76 - 80 0 N/A 0.0 0.0 71 - 75 0 N/A 0.0 0.0 66 - 70 0 N/A 0.0 0.0 61 - 65 0 N/A 0.0 0.0 56 - 60 0 N/A 0.0 0.0 51 - 55 0 N/A 0.0 0.0 < 50 0 N/A 0.0 0.0 Total REM NREM Awake <50% 0.0 min. 0.0 min. 0.0 min. 0.0 min. 51 - 60% 0.0 min. 0.0 min. 0.0 min. 0.0 min. 61 - 70% 0.0 min. 0.0 min. 0.0 min. 0.0 min. 71 - 80% 0.0 min. 0.0 min. 0.0 min. 0.0 min. 81 - 90% 297.3 min. 47.9 min. 241.1 min. 8.3 min. 91 - 100% 171.6 min. 16.6 min. 132.8 min. 22.2 min. Average 90 90 90 92 Minimum SpO2 81 86 81 86 Desaturation Event Index 1.8 2.8 1.1 8.5 # Desat. Events below 89% 8 3 5 N/A Time(%) with Saturation below 89% 4.7 1.8 2.7 0.2 Time(min.) with Saturation below 89% 22.2 8.3 12.8 1.2 Time (mins) REM (mins) NREM (mins) % of TST SpO2 Below 90% 10 3 N7 28.4 SpO2 Below 88% 2 0 0 1 Heart Rate Analysis Min (bpm) Max (bpm) Average (bpm) Awake 63 110 83 NREM 68 107 80 REM 75 98 85 Overall 68 107 81 Supplemental O2 Values Minimum O2 level: None Value Start Time End Time Auto Rental Clerk Comments Ms. Nicole slept in the right, left and supine positions. No cardiac arrhythmia noted. Some leg movements were noted. No bruxism noted. Snoring was noted and scored as a 3 on a scale of 1 through 5. (0=no snoring, 5=snoring loud enough to be heard through a closed door or down the barajas way). She awoke to use the restroom once during the night. She stated that she slept about the same as usual. The final report will be interpreted and signed by a sleep physician. The completed physician report will then be placed in the patient medical record. Therapy (cm H2O) 0 TIB (min.) 478.0 TST (min.) 442.5 Sleep Onset (min.) 13.5 REM Onset From Sleep (min.) 143.5 Sleep Efficiency % 93 Wakefulness (%) 7 Wakefulness (min.) 35.5 NREM 1 (%) 6 NREM 1 (min.) 24.5 NREM 2 (%) 61 NREM 2 (min.) 268.0 NREM 3 (%) 19 NREM 3 (min.) 85.5 REM (%) 15 REM (min.) 64.5 # Arousals 46 Arousal Index 6 # Snore 997 Snore Index 135.2 AHI 1.4 AHI Supine 2 AHI Non-Supine 1 NREM AHI 1.1 REM AHI 2.8 RDI 1.4 # Obstructive Apnea 2 # Central Apnea 0 # Mixed Apnea 0 # Hypopneas 8 RERAs 0 Total Respiratory Events 11 Time Below SpO2 89% (min.) 21.1 Mean NREM SpO2 (%) 90 Mean REM SpO2 (%) 90 Mean Sleep SpO2 (%) 90 Min NREM SpO2 (%) 81 Min REM SpO2 (%) 86 Position Supine (min.) 46.4 Position Non-supine (min.) 411.0 LM Index Sleep 9.2 LM Index NREM 7.9 LM Index REM 16.7 Mean Heart Rate (bpm) 81 Min Heart Rate (bpm) 68
--- NOTE | 2017-11-25 11:49 | POLYSOMNOGRAPH REPORT ---
CLINICAL DATA: A 41-year-old female with a BMI of 30.[address] David Villa for a diagnostic sleep study with fatigue and loud snoring. She has migraines once a month. Her [place] sleepiness score is 6/24. SLEEP ARCHITECTURE: Total sleep period was 464.5 minutes. Total sleep time was 442.5 minutes divided between 378 minutes of non-REM sleep and 64.5 minutes of REM sleep. Sleep onset latency was 13.5 minutes. REM latency was 143.5 minutes. Sleep efficiency was 93%. Wake after sleep onset was 22 minutes. Sleep consisted of stage N1 6%, stage N2 61%, stage N3 19%, and REM 15%. AROUSAL DATA: Forty six arousals were recorded for an index of 6 per hour. PERIODIC LIMB MOVEMENT DATA: Sixty eight limb movements during sleep were noted for an index of 9.2 per hour with arousal index of 2.8 per hour. RESPIRATORY DATA: There was no evidence of clinically significant sleep apnea/hypopnea seen. The AHI was 1.4. There were 2 obstructive apneic episodes. The longest apneic episode was 13.1 seconds. There were 8 hypopneic episodes with mean duration of 23.1 seconds. OXIMETRY DATA: Transient nocturnal hypoxemia was seen. Oxygen sameera was 81% during non-REM sleep. Mean saturation was 90%. Time below 88% was 2 minutes. ECHOCARDIOGRAM: Heart rates ranged from 68-107 beats per minute. No arrhythmias were noted. HEEL BREASTER'S COMMENTS: The patient slept in the right, left, and supine position. Snoring was moderate, rated 3 on a scale of 1-5. IMPRESSION: No evidence of clinically significant sleep apnea/hypopnea with an apnea/hypopnea index of 1.4. No evidence of nocturnal hypoxemia or abnormal limb movements during sleep. RECOMMENDATIONS: The patient should practice good sleep hygiene. There is no need for CPAP, BiPAP, or use of an oral appliance. Clinical correlation is needed. NOEMI
== END | disposition home or self-care (01) ==
LOC: C.NEUR 21:00
PROVIDERS: ATTEND Neuromusculoskeletal Medicine & OMM
DX: R53.83 Other fatigue (principal); G47.00 Insomnia, unspecified; G47.34 Idiopathic sleep related nonobstructive alveolar hypoventilation; R06.83 Snoring; N61.0 Mastitis without abscess; L81.9 Disorder of pigmentation, unspecified

== ENCOUNTER → 2017-12-13 | Outpatient (CLI) | payer OTHER | END | disposition home or self-care (01) | LOC: C.LABPVFM 07:29 | PROVIDERS: ATTEND Neuromusculoskeletal Medicine & OMM | DX: E55.9 Vitamin D deficiency, unspecified (principal) ==

== ENCOUNTER → 2018-01-21 | Outpatient (CLI) | payer OTHER ==
[~2018-01-21] VITALS: Ht 157.5 cm; Wt 78.4 kg
[2018-01-21 15:53] VITALS: BP 117/77; PULSE 94; Ht 157.5 cm; Wt 78.4 kg
== END | disposition home or self-care (01) ==
LOC: C.NEUR 14:43
PROVIDERS: ATTEND Internal Medicine Pulmonary Disease
DX: F51.01 Primary insomnia (principal)

== ENCOUNTER → 2018-04-22 | Outpatient (CLI) | payer OTHER ==
[~2018-04-22] VITALS: Ht 157.5 cm; Wt 78.4 kg
[~2018-04-22] MED LIST changes: +METH-445 PO; -METH500T37 PO
[2018-04-22 13:39] VITALS: BP 117/78; PULSE 89; Ht 157.5 cm; Wt 78.4 kg
== END | disposition home or self-care (01) ==
LOC: C.NEUR 12:20
PROVIDERS: ATTEND Physician Assistant Medical
DX: F51.01 Primary insomnia (principal); R53.83 Other fatigue